=== PATIENT | female | born 1940 | race Caucasian/White ===

== ENCOUNTER 2017-06-22 14:34 | Emergency (ER) | payer MEDICARE ==
[~2017-06-22] VITALS: Ht 170.2 cm; Wt 78.0 kg
[2017-06-22 14:38] VITALS: BP 153/72; PULSE 54; RESP 16; TEMP 98.2; O2SAT 97
[2017-06-22] MEDS ORDERED: FURO20TA PO (15:30)
[2017-06-22] MEDS ORDERED: ULOR40TA PO (15:30)
[2017-06-22] MEDS ORDERED: MAGN400T2 PO (15:30)
[2017-06-22] MEDS ORDERED: FERR325T18 PO (15:30)
[2017-06-22] MEDS ORDERED: HYDR-3801 PO (15:30)
[2017-06-22] MEDS ORDERED: PRAV10TA PO ×2 (15:30)
[2017-06-22] MEDS ORDERED: LEVO88TA2 PO (15:30)
[2017-06-22] MEDS ORDERED: CARV3.12 PO (15:30)
[2017-06-22] MEDS ORDERED: GLIP10TA6 PO (15:30)
[2017-06-22] MEDS ORDERED: SITA50 PO (15:30)
--- NOTE | 2017-06-22 15:30 | PD ---
HPI Chief Complaint: Injury Time Seen by Provider: 15:20 Travel History International Travel<30 days: No Contact w/Intl Traveler<30days: No Traveled to known affect area: No History of Present Illness HPI 76-year-old female came to the emergency room with history of [place]. Patient does not show whether she fell on her outstretched arm or landed directly on the shoulder but since then her shoulder has been hurting. She was brought in by EMS. Patient denies hitting her head. She is not on any blood thinners. Vital signs have been relatively stable. [facility] Past Medical History Narrative Medical List of her past medical, surgical, social and family history is reviewed from the nursing note. Diabetes: Yes Patient Takes Glucophage: No Hypertension: Yes Medical other: Yes ("CHRONIC RENAL DISEASE") : 1 Miscarriage: 1 Dilation and Curettage (D&C): Yes Social History Alcohol Use: No Tobacco Use: No Substance Use: No Allergies-Medications (Allergen,Severity, Reaction): Coded Allergies: Penicillins (Verified Adverse Reaction, Severe, 06/22/17) Blisters codeine (Verified Adverse Reaction, Intermediate, 06/22/17) vomiting Comments List of her allergies reviewed from the nursing note. Reported Meds & Prescriptions Reported Meds & Active Scripts Active Percocet (Oxycodone-Acetaminophen) 7.5-325 mg Tab 1 Tab PO Q6H PRN Reported Furosemide 20 Mg Tab 20 Mg PO WEEKLY Carvedilol 3.125 Mg Tab 3.125 Mg PO DAILY Hydralazine (Hydralazine HCl) 100 Mg Tab 50 Mg PO BID Take with meals Uloric (Febuxostat) 40 Mg Tab PO DAILY Magnesium Oxide 400 Mg Tab 400 Mg PO DAILY Ferrous Sulfate 325 Mg (65 Mg Iron) Tablet 325 Mg PO BIDPC Glipizide 10 Mg Tab 10 Mg PO DAILY Take 30 minutes before a meal Levothyroxine (Levothyroxine Sodium) 88 Mcg Tab 88 Mcg PO DAILY Pravastatin 10 Mg Tab 5 Mg PO WEEKLY Pravastatin 10 Mg Tab 5 Mg PO DAILY Januvia (Sitagliptin Phosphate) 50 Mg Tab 50 Mg PO DAILY Narrative Medication List of her home medications reviewed from the nursing note. Review of Systems Except as stated in HPI: all other systems reviewed are Neg Physical Exam Narrative GENERAL: Awake, alert, moderate distress SKIN: Focused skin assessment warm/dry. HEAD: Atraumatic. Normocephalic. EYES: Pupils equal and round. No scleral icterus. No injection or drainage. ENT: No nasal bleeding or discharge. Mucous membranes pink and moist. NECK: Trachea midline. No JVD. CARDIOVASCULAR: Regular rate and rhythm. No murmur appreciated. RESPIRATORY: No accessory muscle use. Clear to auscultation. Breath sounds equal bilaterally. GASTROINTESTINAL: Abdomen soft, non-tender, nondistended. Hepatic and splenic margins not palpable. MUSCULOSKELETAL: Right shoulder swelling with decreased range of motion due to the pain. No clubbing. No cyanosis. No edema. Distal neurovascular is intact. NEUROLOGICAL: Awake and alert. No obvious cranial nerve deficits. Motor grossly within normal limits. Normal speech. PSYCHIATRIC: Appropriate mood and affect; insight and judgment normal. Data Data Last Documented VS Vital Signs Date Time Temp Pulse Resp B/P (MAP) Pulse Ox O2 Delivery O2 Flow Rate FiO2 06/22/17 18:42 06/22/17 17:55 53 17 99 Room Air 06/22/17 14:38 98.2 Orders Orders Morphine Inj (Morphine Inj) (06/22/17 15:45) Shoulder, Limited(2vws) (06/22/17 ) Chest, Single Ap (06/22/17 16:21) Sling Cradle Arm (06/22/17 ) Sling Cradle Arm (06/22/17 ) Oxycodone-Acetamin 5-325 Mg (Percocet (06/22/17 17:45) Ondansetron Odt (Zofran Odt) (06/22/17 17:45) ^ Sling (06/22/17 17:43) Ed Discharge Order (06/22/17 17:57) MDM Medical Decision Making Medical Screen Exam Complete: Yes Emergency Medical Condition: Yes Medical Record Reviewed: Yes Differential Diagnosis Shoulder dislocation, shoulder fracture Narrative Course 4:04 PM have medicated her for pain. Awaiting for x-ray to be done and resulted. 4:47 PM the shoulder x-ray shows a surgical neck fracture with extension into the greater tuberosity which is displaced. They also noticed a density in the right lung and hence a chest x-ray was ordered. I can see the density in the right upper lobe. Awaiting for the radiologist read. Since the x-ray looks to be involving the joint I have put a call out for the orthopedist. I'll also put the patient into a shoulder splint for the time being. 5:26 PM case was discussed with the orthopedic PA who recommended just a sling and swath and follow-up outpatient. Still waiting for the x-ray to be resulted. Procedures EKG Prior to Arrival: No Diagnosis Primary Impression: Shoulder fracture, right Qualified Codes: S42.91XA - Fracture of right shoulder girdle, part unspecified, initial encounter for closed fracture Scripts Oxycodone-Acetaminophen (Percocet) 7.5-325 mg Tab 1 TAB PO Q6H Y for PAIN SCALE 6 TO 10, #12 TAB 0 Refills Prov: Dominik Hollis MD 06/22/17 Monisha Vyas MD Jun 22, 2017 15:30
[2017-06-22] MEDS ORDERED: MORPHINE SULFATE 2 MG/ML INJ IM ONE (15:45)
--- NOTE | 2017-06-22 16:40 | RADRPT ---
EXAM DATE/TIME: 06/22/2017 16:15 [facility] COMPARISON: No previous studies available for comparison. INDICATIONS : Patient complains of right shoulder pain status post [place] the mall. MEDICAL HISTORY : None. SURGICAL HISTORY : None. ENCOUNTER: Initial ACUITY: 1 day PAIN SCORE: 10/10 LOCATION: Right Shoulder FINDINGS: Avulsion fracture greater tuberosity. With secondary fracture crossing the humeral head Degenerative changes AC joint. Glenoid intact. 2.9 CM soft tissue mass laterally right lung. Chest x-ray pendi ng. CONCLUSION: Fracture surgical neck humeral head and greater tuberosity free fragment. Alignment remains anatomic. Anish Lares MD FACR on June 22, 2017 at 16:36 Board Certified Radiologist. This report was verified electronically.
[2017-06-22] MEDS ORDERED: ONDANSETRON ODT 4 MG TAB PO ONE (17:45)
[2017-06-22] MEDS ORDERED: oxyCODONE/ACETAMINOPHEN 5 MG/325 MG TAB PO ONE (17:45)
[2017-06-22 17:55] VITALS: BP 189/77; PULSE 53; RESP 17; O2SAT 99
--- NOTE | 2017-06-22 17:55 | RADRPT ---
EXAM DATE/TIME: 06/22/2017 16:15 [facility] COMPARISON: No previous studies available for comparison. INDICATIONS : Evaluate for pneumothorax, pneumonia, and communicable diseases. MEDICAL HISTORY : None. SURGICAL HISTORY : None. ENCOUNTER: Initial ACUITY: 1 day PAIN SCORE: 0/10 LOCATION: chest FINDINGS: The cardiac silhouette is enlarged in transverse diameter. There is no evidence of pneumonia. There is a 2 cm mass in the right midlung suspicious for malignancy. CT scan is recommended for further yao luation if clinically indicated. CONCLUSION: 1. Cardiomegaly. No acute pulmonary disease. 2. 2 cm mass in the right midlung suspicious for malignancy. CT scan is recommended for further evalu ation if clinically indicated. Glenn Sanchez MD on June 22, 2017 at 17:52 Board Certified Radiologist. This report was verified electronically.
[2017-06-22] MEDS ORDERED: PERC7.5T13 PO (17:59)
--- NOTE | 2017-06-22 18:00 | PD ---
Data Data Last Documented VS Vital Signs Date Time Temp Pulse Resp B/P (MAP) Pulse Ox O2 Delivery O2 Flow Rate FiO2 06/22/17 18:42 06/22/17 17:55 53 17 99 Room Air 06/22/17 14:38 98.2 Orders Orders Morphine Inj (Morphine Inj) (06/22/17 15:45) Shoulder, Limited(2vws) (06/22/17 ) Chest, Single Ap (06/22/17 16:21) Sling Cradle Arm (06/22/17 ) Sling Cradle Arm (06/22/17 ) Oxycodone-Acetamin 5-325 Mg (Percocet (06/22/17 17:45) Ondansetron Odt (Zofran Odt) (06/22/17 17:45) ^ Sling (06/22/17 17:43) Ed Discharge Order (06/22/17 17:57) MDM Medical Record Reviewed: Yes Supervised Visit with MAY: No Narrative Course Please refer to the outgoing provider note. The diagnosis of shoulder fracture was discussed with the patient and she understands the necessity follow with orthopedic surgery upon her return to [place]. We also discussed the right lung mass and the potential of a diagnosis of cancer which would necessitate CT scan of potential tissue biopsy. The patient and her verbalized understanding and intent to follow up with the primary care provider upon return home to [place] as well. The patient reiterated complaints of pain at the time of reassessment which was about 6:30 PM and a dose Percocet was ordered. A sling was also shortly thereafter applied. Diagnosis Primary Impression: Shoulder fracture, right Qualified Codes: S42.91XA - Fracture of right shoulder girdle, part unspecified, initial encounter for closed fracture Additional Impression: Mass of right lung Referrals: Orthopaedic Surgeon call for appointment Primary Care Physician call for appointment Med/Other Pt SpecificInfo: Prescription(s) given Scripts Oxycodone-Acetaminophen (Percocet) 7.5-325 mg Tab 1 TAB PO Q6H Y for PAIN SCALE 6 TO 10, #12 TAB 0 Refills Prov: Dominik Hollis MD 06/22/17 Disposition: 01 DISCHARGE HOME Condition: Stable Dominik Hollis MD Jun 22, 2017 18:00
== END 2017-06-22 18:48 | disposition home or self-care (01) ==
LOC: NEPD 14:34
DX: S42.91XA Fracture of right shoulder girdle, part unspecified, initial encounter for closed fracture (principal); R91.8 Other nonspecific abnormal finding of lung field; I12.9 Hypertensive chronic kidney disease with stage 1 through stage 4 chronic kidney disease, or unspecified chronic kidney disease; N18.9 Chronic kidney disease, unspecified; E11.22 Type 2 diabetes mellitus with diabetic chronic kidney disease; W19.XXXA Unspecified fall, initial encounter; Y92.59 Other trade areas as the place of occurrence of the external cause; Z79.84 Long term (current) use of oral hypoglycemic drugs
CPT/HCPCS: 71045; 73030; 96372; 99284; J2270